=== PATIENT | female | born 1940 | race Caucasian/White ===

== ENCOUNTER 2020-01-29 10:52 | Observation (INO) ==
[2020-01-29] MEDS ORDERED: CeFAZolin Syr 2,000MG/20 ML 2,000 MG/20 ML SYRINGE IVPB ONE (11:17)
[2020-01-29] MEDS ORDERED: Ringers Solution, Lactated 1,000 ML IVC SCH (11:30)
[2020-01-29] MEDS ORDERED: Gabapentin 300 MG CAPSULE PO ONE (11:34)
[2020-01-29] MEDS ORDERED: Ondansetron 4 MG/2 ML VIAL IVP PRN ×2 (11:34→17:10)
[2020-01-29] MEDS ORDERED: Promethazine Syrup 6.25 MG/5 ML PO PRN (11:34)
[2020-01-29] MEDS ORDERED: *HR* Labetalol 20 MG/4 ML SYRINGE IVP PRN (11:34)
[2020-01-29] MEDS ORDERED: Aspirin 81 MG TAB.CHEW PO ONE (11:40)
[2020-01-29] MEDS ORDERED: *HR* FentaNYL (PF) 100 MCG/2 ML VIAL ONE (11:50)
[2020-01-29] MEDS ORDERED: *HR* Propofol 200 MG/20 ML VIAL IVP ONE (11:50)
[2020-01-29] MEDS ORDERED: Ondansetron 4 MG/2 ML VIAL ONE (11:51)
[2020-01-29] MEDS ORDERED: *HR* Rocuronium Bromide 50 MG/5 ML VIAL ONE (11:51)
[2020-01-29] MEDS ORDERED: Dexamethasone 4 MG/ML VIAL ONE (11:51)
[2020-01-29] MEDS ORDERED: Lidocaine -MPF 2% 2 ML VIAL ONE (11:51)
[2020-01-29] MEDS ORDERED: Bacitracin 50,000 UNIT, Polymyxin B Sulfate 500,000 UNIT, Sodium Chloride IRRigation 1,... IR ONE (13:05)
[2020-01-29] MEDS ORDERED: EPHEDrine 50 MG/ML VIAL ONE (13:30)
[2020-01-29] MEDS ORDERED: *HR* Phenylephrine 10 MG/ML VIAL ONE (14:42)
[2020-01-29] MEDS ORDERED: Albumin Human 5% 12.5 GM/250 ML IV.SOLN ONE (14:45)
[2020-01-29] MEDS: *HR* HYDROmorphone (PF) 1 MG/ML SYRINGE IVP PRN ×2 (16:12→16:20)
[2020-01-29] MEDS ORDERED: *HR* OxyCODONE Immed Rel 5 MG TABLET PO PRN (17:10)
[2020-01-29] MEDS ORDERED: Naloxone 0.4 MG/ML INJ IVP PRN (17:10)
[2020-01-29] MEDS ORDERED: Acetaminophen 325 MG TABLET PO PRN (17:10)
[2020-01-29] MEDS: Ringers Solution, Lactated 1,000 ML IVC SCH ×2 (17:52→20:10)
[2020-01-29] MEDS: carvediloL 25 MG TABLET PO SCH (20:02)
[2020-01-29] MEDS: Gabapentin 300 MG CAPSULE PO SCH (20:02)
[2020-01-29] MEDS: *HR* HYDROcodone/Acet 5/325 mg TABLET PO PRN (20:10)
[2020-01-29] MEDS: CeFAZolin 2 GM/120 ML BAG IVPB SCH (20:11)
[2020-01-30] MEDS: CeFAZolin 2 GM/120 ML BAG IVPB SCH (05:34)
[2020-01-30] MEDS: *HR* HYDROcodone/Acet 5/325 mg TABLET PO PRN ×2 (09:45→15:52)
[2020-01-30] MEDS: hydroCHLOROthiazide 25 MG TABLET PO SCH (09:45)
[2020-01-30] MEDS: Cholecalciferol (D-3) 1,000 UNIT (25MCG) TABLET PO SCH (09:45)
[2020-01-30] MEDS: Aspirin Enteric Coated 81 MG Tablet PO SCH (09:46)
[2020-01-30] MEDS: Gabapentin 300 MG CAPSULE PO SCH ×3 (09:46→22:26)
[2020-01-30] MEDS: amLODIPine 5 MG TABLET PO SCH (09:46)
[2020-01-30] MEDS: carvediloL 25 MG TABLET PO SCH ×2 (09:46→22:27)
[2020-01-30] MEDS: Diclofenac Sodium (24 HR) 100 MG TABLET PO SCH (09:46)
[2020-01-30] MEDS: Multivit/Ca/Min/Fe/FA 1 TAB TABLET PO SCH (09:46)
[2020-01-30 10:30] LABS: Hemoglobin 11.9 g/dL (11.5-15.4)
[2020-01-30] MEDS: Ringers Solution, Lactated 1,000 ML IVC SCH (22:34)
[2020-01-31] MEDS: Cholecalciferol (D-3) 1,000 UNIT (25MCG) TABLET PO SCH (10:20)
[2020-01-31] MEDS: carvediloL 25 MG TABLET PO SCH (10:20)
[2020-01-31] MEDS: Multivit/Ca/Min/Fe/FA 1 TAB TABLET PO SCH (10:21)
[2020-01-31] MEDS: hydroCHLOROthiazide 25 MG TABLET PO SCH (10:21)
[2020-01-31] MEDS: Aspirin Enteric Coated 81 MG Tablet PO SCH (10:21)
[2020-01-31] MEDS: Gabapentin 300 MG CAPSULE PO SCH (10:22)
[2020-01-31] MEDS: Diclofenac Sodium (24 HR) 100 MG TABLET PO SCH (10:22)
[2020-01-31] MEDS: amLODIPine 5 MG TABLET PO SCH (10:22)
[2020-01-31 15:25] VITALS: BP 103/51
== END 2020-01-31 16:18 | disposition home health service (06) ==
LOC: 3NENU 10:52 → SAMDAY 10:52 → 3NENU 17:14
PROVIDERS: ADMIT Orthopaedic Surgery Orthopaedic Surgery of the Spine; ATTEND Orthopaedic Surgery Orthopaedic Surgery of the Spine